=== PATIENT | male | born 1935 | race Hispanic/Latino ===

== ENCOUNTER 2016-05-04 07:49 | Day surgery (SDC) | payer MEDICARE ==
[2016-04-17 14:13] VITALS: PULSE 122
[2016-04-27 12:16] VITALS: BMI 27.3
[2016-05-04] MEDS ORDERED: Aztreonam 1 Gm in NS 100mL 100 ML IVPB STA (10:10)
[2016-05-04] MEDS ORDERED: Midazolam 2 MG/2 ML VIAL ONE (10:29)
[2016-05-04] MEDS ORDERED: Propofol 10 mg/ml Inj (20 ML) ONE (10:29)
[2016-05-04] MEDS ORDERED: Lactated Ringer's 1,000 ML IV SCH (11:15)
[2016-05-04 12:03] VITALS: BP 135/62; PULSE 73; RESP 18; TEMP 97.9; O2SAT 93
--- NOTE | 2016-05-04 12:49 | OP ---
PROCEDURE DATE: 05/04/2016 PREOPERATIVE DIAGNOSIS: Urethral stricture. POSTOPERATIVE DIAGNOSIS: Very high bladder neck. PROCEDURE: Removal of Chadwick catheter, flexible cystoscopy. SURGEON: Jair Ramirez M.D. ANESTHESIA: IV sedation. DESCRIPTION OF OPERATION: After IV sedation was given, the patient was placed in lithotomy. The cat heter had a sensor wire placed through the capsule Chadwick catheter and the catheter was removed. A fl exible scope was advanced over the sensor wire. The prostatic urethra had some bilobar occlusion, th ere was a very high bladder neck. The bladder itself on inspection did not show any obvious tumor or stones. There was some catheter reaction. What was noted was the patient was voiding around the s cope with an excellent stream. Prior to the start of the operation, he was given 1 gram of Azactam b ecause of a PENICILLIN ALLERGIES. The patient had the sensor wire left in the bladder. The scope wa s removed. There was no evidence of any bleeding. Over the sensor wire, a 16 [place] [employer] was pa ssed into the bladder with return of clear irrigant urine. He tolerated the procedure well. The kyrie n is to discontinue the Chadwick back at his half-way in 3 days, 7 a.m. on Saturday morning. The nurs es will call later to let me know how his voiding; however, he had an excellent stream, voiding aroun d the catheter and sensor wire. Jair Ramirez MD cc: [id number] TT: 05/04/2016 12:48:51 jn
== END 2016-05-04 13:55 ==
LOC: SDS 07:49
PROVIDERS: ATTEND Urology
DX: N32.89 Other specified disorders of bladder (principal); I10 Essential (primary) hypertension; Z88.0 Allergy status to penicillin; N35.9 Urethral stricture, unspecified
CPT/HCPCS: 52000; J2250; J2704; J3010; J7120 ×2

== ENCOUNTER 2017-08-13 13:02 | Inpatient (IN) | payer MEDICARE ==
[2017-08-13 13:24] VITALS: BMI 28.0
[2017-08-13] MEDS ORDERED: Iohexol 240 (50 ml) ONE (13:34)
[2017-08-13 14:17] LABS: VENOUS BLOOD GAS BASE EXCESS 1.2 mmol/L (0.0-2.0); VENOUS BLOOD GAS PO2 53 mm/Hg (30-55); VENOUS BLOOD PH 7.35 (7.32-7.43)
--- NOTE | 2017-08-13 14:18 | ED PDOC ---
Arrival/HPI - General Historian: Patient - History of Present Illness Symptom Onset: Gradual Symptom Course: Worsening - General Chief Complaint: Cough, Cold, Congestion Time Seen by Provider: 08/13/17 13:05 - History of Present Illness Narrative History of Present Illness (Text): 82 year old Male with a PMH of diabetes, hypertension, atrial fibrillation, depression, Non-Hodgkin's lymphoma, and BPH presents with painful urination, abdominal mass due to his Non-Hodgkin's lymphoma, and worsening cough. He has not been getting treatment for his Non-Hodgkin's lymphoma diagnosed last year. He reports that he has had worsening of burning on urination since Fall 2016. In addition, he reports right flank burning pain that is about 8 inches long down the right side that has been going on for a while. Patient reports no general pain from the area of the abdominal growth. Patient reports an on and off cough that has been going on for about a year. He reports having been given a medication called "millitit" while he was in [place], but was discontinued when he returned to his senior care. His cough has now worsened and has a green colored sputum. He denies having any recent headache or fever. 08/13/17 14:11 08/13/17 14:48 08/13/17 16:33 (Eriberto Rivers) Past Medical History - Provider Review Nursing Documentation Reviewed: Yes - Infectious Disease Hx of Infectious Diseases: None - Tetanus Immunization Tetanus Immunization: Unknown - Cardiac Hx Atrial Fibrillation: Yes Hx Hypertension: Yes Hx Pacemaker: No - Pulmonary Hx Pneumonia: Yes - Neurological Hx Alzheimer's Disease: Yes Hx Dementia: Yes Hx Paralysis: No - HEENT Hx HEENT Disorder: Yes (glasses) - Renal Hx Renal Disorder: No - Endocrine/Metabolic Hx Endocrine Disorders: Yes Hx Diabetes Mellitus Type 2: Yes - Hematological/Oncological Hx Blood Transfusions: No Hx Cancer: Yes Hx Lymphoma: Yes (Hodgkin's) - Integumentary Hx Dermatological Disorder: Yes Other/Comment: ble dry discolored skin - Musculoskeletal/Rheumatological Hx Musculoskeletal Disorders: No - Gastrointestinal Hx Gastrointestinal Disorders: Yes (constipation) Hx Gastroesophageal Reflux: Yes - Genitourinary/Gynecological Hx Genitourinary Disorders: Yes Hx Incontinence: Yes Hx Prostate Problems: Yes (BPH) Hx Urinary Tract Infection: Yes - Psychiatric Hx Depression: Yes Hx Emotional Abuse: No Hx Physical Abuse: No Hx Substance Use: No - Past Surgical History Past Surgical History: Non-Contributing - Surgical History Other/Comment: cystoscopy, pac rcw, left peritoneal lymphnode bx 04/2015, left thoracentesis 04/28/15, cystoscope today 04/17/16 dx burning in urine , bladder neck stricture - Anesthesia Hx Anesthesia Reactions: No Hx Malignant Hyperthermia: No - Suicidal Assessment Feels Threatened In Home Enviroment: No Family/Social History - Physician Review Nursing Documentation Reviewed: Yes Family/Social History: Unknown Family HX Smoking Status: Never Smoked Hx Alcohol Use: No Hx Substance Use: No Allergies/Home Meds Allergies/Adverse Reactions: Allergies Penicillins Adverse Reaction (Verified 08/13/17 13:16) RASH Home Medications: Home Meds Medication Instructions Recorded Confirmed Iron/Folic Acid/C/B6/B12/Zinc 1 tab PO DAILY 04/26/15 05/04/16 [Corvita 150 Tablet] Digoxin 0.125 mg PO QPM 05/12/15 05/04/16 DULoxetine [Cymbalta] 60 mg PO HS 04/10/16 05/04/16 Phenazopyridine [Pyridium] 200 mg PO TID 04/10/16 05/04/16 Tamsulosin [Flomax] 0.4 mg PO DAILY 04/10/16 05/04/16 Nitrofurantoin Macrocrystals 100 mg PO BID 05/04/16 05/04/16 [Macrobid] Acetaminophen [Non-Aspirin Pain 2 tab PO BID 08/13/17 08/13/17 Relief] Metformin HCl [Fortamet] 1,000 mg PO BID 08/13/17 08/13/17 Polyethylene Glycol 3350 [Peg 3350] 17 gm PO 08/13/17 QUEtiapine [SEROquel] 25 mg PO 08/13/17 Review of Systems - Review of Systems Constitutional: Normal Eyes: Normal ENT: Normal Respiratory: Cough, Sputum Cardiovascular: Normal Gastrointestinal: Abdominal Pain Genitourinary Male: Dysuria Musculoskeletal: Normal Skin: Normal Physical Exam Vital Signs Reviewed: Yes Blood Pressure: Hypertensive Pulse: Tachycardic Respiratory Rate: Normal Appearance: Positive for: Well-Appearing Mental Status: Positive for: Alert and Oriented X 3, Confused - Systems Exam Head: Present: Atraumatic Pupils: Present: PERRL Extroacular Muscles: Present: EOMI Conjunctiva: Present: Normal Mouth: Present: Moist Mucous Membranes Nose (External): Present: Atraumatic Neck: Present: Normal Range of Motion Respiratory/Chest: Present: Clear to Auscultation, Decreased Breath Sounds Cardiovascular: Present: Regular Rate and Rhythm Abdomen: Present: Tenderness, Distention, Mass/Organomegaly Upper Extremity: Present: Normal Inspection, NORMAL PULSES Lower Extremity: Present: Normal Inspection, NORMAL PULSES Neurological: Present: GCS=15, CN II-XII Intact, Speech Normal Skin: Present: Warm, Dry, Normal Color Psychiatric: Present: Alert, Oriented x 3, Normal Insight, Normal Concentration Vital Signs Temp Pulse Resp BP Pulse Ox 08/13/17 17:39 98.7 F 88 18 135/69 97 08/13/17 15:15 99.2 F 94 H 18 98 08/13/17 13:26 106 H 18 141/75 96 Medical Decision Making ED Course and Treatment: 82 year male presents with cough, burning on urination, and abdominal mass. Assessment: Pneumonia, UTI, Hodgkin's lymphoma Plan: CBC, CMP, Magnesium Chest X Ray Abdominal CT Urinanalysis, Urine Culture Blood Culture Venous Blood Gas 08/13/17 14:58 08/13/17 15:00 08/13/17 18:47 Lactate: 2.2-->1.3 Glucose 228-->121 CT shows possible left upper lobe tumor, inflammatory changes, and postobstructive pneumonitis. In addition, possible cystitis. Patient has been admitted to medicine. 08/13/17 18:48 08/13/17 18:52 08/13/17 18:53 (Eriberto Rivers) - Lab Interpretations Lab Results: 08/13/17 14:00 08/13/17 14:00 Lab Results 08/13/17 17:54: pO2 42, VBG pH 7.32, VBG pCO2 54.0, VBG HCO3 27.8, VBG Total CO2 29.5 H, VBG O2 Sat (Calc) 77.6 H, VBG Base Excess 0.7, VBG Potassium 4.7, Sodium 134.0, Chloride 103.0, Glucose 121 H, Lactate 1.3, FiO2 21.0, Venous Blood Potassium 4.7 08/13/17 14:00: Sodium 139, Chloride 102, Potassium 4.7, Carbon Dioxide 25, Anion Gap 16, BUN 22 H, Creatinine 0.7 L, Est GFR ( Amer) > 60, Est GFR ( Non-Af Amer) > 60, Random Glucose 223 H, Calcium 9.7, Magnesium 2.0, Total Bilirubin 0.3, AST 20, ALT 13, Alkaline Phosphatase 98, Lactate Dehydrogenase 309 L, Total Creatine Kinase < 20 L, Troponin I < 0.01 D, Total Protein 7.5, Albumin 4.0, Globulin 3.5, Albumin/Globulin Ratio 1.1, Lipase 91 08/13/17 14:00: pO2 53, VBG pH 7.35, VBG pCO2 50.0, VBG HCO3 27.6, VBG Total CO2 29.1 H, VBG O2 Sat (Calc) 89.2 H, VBG Base Excess 1.2, VBG Potassium 4.7, Sodium 138.0, Chloride 106.0, Glucose 228 H, Lactate 2.2 H, FiO2 21.0, Venous Blood Potassium 4.7 08/13/17 14:00: WBC 5.0 D, RBC 3.86, Hgb 10.0 L, Hct 33.6 L, MCV 87.0, MCH 25.9 , MCHC 29.8 L, RDW 22.4 H, Plt Count 205, MPV 10.5, Gran % 62.7, Lymph % (Auto) 25.7, [place] % (Auto) 6.0, Eos % (Auto) 4.8, Baso % (Auto) 0.8, Gran # 3.12, Lymph # (Auto) 1.3, [place] # (Auto) 0.3, Eos # (Auto) 0.2, Baso # (Auto) 0.04 - RAD Interpretation Narrative RAD Interpretations (Text): Lisa CT: 1. Suspicious findings primarily in the left upper lobe for tumor. 2. Likely inflammatory changes affecting segments of the right upper and right lower lobes. 3. Mucous plugging and postobstructive pneumonitis limited to the left mainstem bronchus and segmental branches. 4. Cholelithiasis without CT evidence of acute cholecystitis. A stable finding. 5. Nephrolithiasis, nonobstructing a stable finding. 6. Slight decrease in retroperitoneal lymphadenopathy. 7. Bladder wall thickening likely cystitis. Several remaining bladder calculi. Small bladder diverticulum. Chest X ray: Interval right rounded perihilar opacity- given the limitations- a patchy interval infiltrate here needs to be considered. Follow-up to resolution recommended. 08/13/17 18:50 08/13/17 18:51 (Eriberto Rivers) Radiology Orders: 08/13/17 13:25 CHEST,ABD,PEL W/IV&PO CONTRAST [CT] Stat 08/13/17 13:27 CHEST ONE VIEW [RAD] Stat - EKG Interpretation EKG Interpretation (Text): Sinus tachycardia. 08/13/17 18:51 (Eriberto Rivers) - Medication Orders Current Medication Orders: Acetaminophen (Tylenol 325mg Tab) 650 mg PO BID [facility] Last Admin: 08/13/17 20:11 Dose: 650 mg MAR Pain/Vitals Document 08/13/17 20:11 RD (Rec: 08/13/17 20:12 [place] [facility] [place] [facility] [id number] Pain Reassessment Is This A Pain ReAssessment? No Sleep Is patient sleeping during reassessment? No Presence of Pain Presence of Pain Yes Aspirin (Ecotrin) 81 mg PO DAILY [facility] Last Admin: 08/13/17 20:11 Dose: 81 mg Digoxin (Digoxin) 0.125 mg PO QPM [facility] Last Admin: 08/13/17 20:11 Dose: 0.125 mg MAR Apical Pulse Rate Document 08/13/17 20:11 RD (Rec: 08/13/17 20:11 [place] [facility] [place] [facility] [id number] Apical Pulse Rate Apical Pulse Rate (60-90 beats/min) 105 Guaifenesin/Codeine Phosphate (Robitussin W/Codeine) 5 ml PO Q4H PRN PRN Reason: Cough and congestion Sodium Chloride (Sodium Chloride 0.9%) 1,000 mls @ 125 mls/hr IV .Q8H [facility] Last Admin: 08/13/17 15:08 Dose: 125 mls/hr eMAR Start Stop Document 08/13/17 15:08 [email or web address] (Rec: 08/13/17 15:09 [email or web address] [id number]) Intravenous Solution Start Date 08/13/17 Start Time 15:09 End Date 08/13/17 Meropenem (Merrem Iv 1 Gm Premix) 50 mls @ 100 mls/hr IVPB Q8 AYLIN PRN Reason: Protocol Stop: 08/23/17 06:01 Last Admin: 08/14/17 05:33 Dose: 100 mls/hr eMAR Start Stop Document 08/14/17 05:33 PCU (Rec: 08/14/17 05:33 PCU [id number]) Intravenous Solution Start Date 08/14/17 Start Time 05:33 End Date 08/14/17 End time 06:33 Total Infusion Time 60 Metformin HCl (Glucophage) 1,000 mg PO BID [facility] Last Admin: 08/13/17 22:28 Dose: 1,000 mg Phenazopyridine HCl (Pyridium) 200 mg PO TID [facility] Last Admin: 08/13/17 20:11 Dose: 200 mg Quetiapine Fumarate (Seroquel) 25 mg PO HS AYLIN PRN Reason: Protocol Last Admin: 08/13/17 22:28 Dose: 25 mg Behavioural Document 08/13/17 22:28 PCU (Rec: 08/13/17 22:28 PCU [id number]) Maintenance Maintenance Dose Yes Re-Assess: Reassess Psych Meds Document 08/13/17 23:28 PCU (Rec: 08/13/17 23:52 PCU [facility]) Reassess Psych Med Effective Tamsulosin HCl (Flomax) 0.4 mg PO DAILY [facility] Last Admin: 08/13/17 20:11 Dose: 0.4 mg Discontinued Medications Levofloxacin/Dextrose (Levaquin 750mg) 750 mg in 150 mls @ 100 mls/hr IVPB STAT STA PRN Reason: Protocol Stop: 08/13/17 16:45 Last Admin: 08/13/17 17:43 Dose: 100 mls/hr eMAR Start Stop Document 08/13/17 17:43 [email or web address] (Rec: 08/13/17 17:44 [email or web address] [id number]) Intravenous Solution Start Date 08/13/17 Start Time 17:44 End Date 08/13/17 - PA / SKIN TOGGLER / Resident Statement / has reviewed & agrees with the documentation as recorded. / has examined the patient and agrees with the treatment plan. Disposition/Present on Arrival - Present on Arrival Any Indicators Present on Arrival: No History of DVT/PE: No History of Uncontrolled Diabetes: No Urinary Catheter: Yes (draining clear bloody urine) History of Decub. Ulcer: No History Surgical Site Infection Following: None - Disposition Have Diagnosis and Disposition been Completed?: Yes Disposition Time: 16:04 Patient Plan: Admission - Disposition Diagnosis: Metastasis, Pneumonia Disposition: HOSPITALIZED Patient Problems: Current Active Problems Problem Status Onset Metastasis Acute Condition: STABLE - Notes Notes (Text): Patient was code sepsis and did not receive IV fluids because lactate level decreased without any intervention. 08/13/17 18:42 (Eriberto Rivers)
[2017-08-13 14:27] LABS: ALB/GLOB RATIO 1.1 (1.1-1.8); ALT/SGPT 13 U/L (7-56); AST/SGOT 20 U/L (17-59); BLOOD UREA NITROGEN 22 mg/dL (7-21); CALCIUM 9.7 mg/dL (8.4-10.5); GFR AFRICAN-AMERICAN > 60; GFR NON-AFRICAN AMERICAN > 60; LIPASE 91 U/L (23-300)
[2017-08-13 14:31] LABS: BASO # 0.04 K/mm3 (0.0-2.0); BASO % 0.8 % (0.0-3.0); EOS # 0.2 (0.0-0.7); EOS % 4.8 % (1.5-5.0); GRAN # 3.12 (1.4-6.5); GRAN % 62.7 % (50.0-68.0); LYMPH # 1.3 (1.2-3.4); LYMPH % 25.7 % (22.0-35.0); MEAN CORPUSCULAR HEMOGLOBIN 25.9 pg (25.0-35.0); MEAN CORPUSCULAR HGB CONC 29.8 g/dl (31.0-37.0); MEAN PLATELET VOLUME 10.5 fl (7.0-11.0); MONO # 0.3 (0.1-0.6); RBC 3.86 10^6/uL (3.5-6.1); RED CELL DISTRIBUTION WIDTH 22.4 % (11.5-14.5)
[2017-08-13 14:39] LABS: TROPONIN I < 0.01 ng/mL
[2017-08-13] MEDS: Sodium Chloride 0.9% 1,000 ML IV SCH (15:08)
[2017-08-13] MEDS ORDERED: levoFLOXacin 750 mg in D5W 750 MG/150 ML BAG IVPB STA (15:16)
--- NOTE | 2017-08-13 16:57 | RAD ---
PROCEDURE: CHEST RADIOGRAPH, 1 VIEW HISTORY: r/o infiltrate COMPARISON: 04/17/2016 FINDINGS: LUNGS: Study limited - projection rightwardly rotated. Vague rounded opacity projects over the right perihilar region. Not appreciated such on the prior study or rounded infiltrate is a consideration. No interval left hemithoracic pathology noted PLEURA: No pneumothorax or pleural fluid seen. CARDIOVASCULAR: Valuation of the heart limited due to rotation. Right central line tip in right atrium as before OSSEOUS STRUCTURES: No significant abnormalities. VISUALIZED UPPER ABDOMEN: Normal. OTHER FINDINGS: None. IMPRESSION: Interval right rounded perihilar opacity- given the limitations- a patchy interval infiltrate here needs to be considered. Follow-up to resolution recommended.
--- NOTE | 2017-08-13 17:47 | CT ---
PROCEDURE: CT Chest, Abdomen and Pelvis with intravenous contrast HISTORY: Evaluation of pelvic mass. Relevant interventional procedure(s): 05/02/2015 CT directed biopsy enlarged retroperitoneal lymph node. COMPARISON: 09/13/2015 CT neck thorax abdomen and pelvis TECHNIQUE: IV dose administered: 150 cc Omnipaque 350 Radiation dose: Total exam DLP = 1703.64 mGy-cm. This CT exam was performed using one or more of the following dose reduction techniques: Automated exposure control, adjustment of the mA and/or kV according to patient size, and/or use of iterative reconstruction technique. FINDINGS: CT CHEST WITH CONTRAST: LUNGS: New masses in the left upper lobe measuring 12 x 13 mm and a more peripheral pleural-based mass posterior segment left upper lobe measuring 13 x 14 mm. Peripheral infiltrates/ masses affecting posterior segment of the right upper lobe and superior segment right lower lobe. These were not seen on the prior study. Within the right lower lobe bronchus there is debris, inspissated secretions. Peripheral parabronchial thickening and lower lobe consolidative changes perhaps postobstructive pneumonitis with mucous plugging. MEDIASTINUM: Unremarkable. Normal caliber aorta and pulmonary arterial trunk. No aortic dissection. Normal size heart. LYMPH NODES: Unremarkable. PLEURA: Simple left pleural effusion appears to be a chronic finding, seen previously. BONES: Unremarkable. OTHER FINDINGS: None. CT ABDOMEN AND PELVIS: LIVER: Hepatic steatosis. No focal masses. No intrahepatic bile duct dilatation or perihepatic ascites. GALLBLADDER AND BILE DUCTS: Cholelithiasis without CT evidence of acute cholecystitis. PANCREAS: Unremarkable. No gross lesion or ductal dilatation. SPLEEN: Small peripheral cysts or areas of splenic infarction identified. This is not felt to represent a neoplastic process/ tumor burden. ADRENALS: Unremarkable. No mass. KIDNEYS AND URETERS: Right kidney: Nonobstructing calculi in the upper pole collecting system unchanged. Left kidney in ureter: Double-J stent in satisfactory position in the renal pelvis coursing through the ureter, the catheter is coiled in the urinary bladder. VASCULATURE: Unremarkable. No aortic aneurysm. BOWEL: Unremarkable. No obstruction. No gross mural thickening. APPENDIX: Normal appendix. PERITONEUM: Unremarkable. No free fluid. No free air. LYMPH NODES: Decrease in size left periaortic lymphadenopathy. Multiple enlarged lymph nodes again identified the largest confluent tucker mass measures 2.1 x 3 cm. Previously this measured 2.6 x 3.4 cm. BLADDER: Bladder wall thickening likely reflective of mild cystitis. Bladder calculi are fewer and smaller compared to the prior study. REPRODUCTIVE: Unremarkable. BONES: No acute fracture. OTHER FINDINGS: None. IMPRESSION: 1. Suspicious findings primarily in the left upper lobe for tumor. 2. Likely inflammatory changes affecting segments of the right upper and right lower lobes. 3. Mucous plugging and postobstructive pneumonitis limited to the left mainstem bronchus and segmental branches. 4. Cholelithiasis without CT evidence of acute cholecystitis. A stable finding. 5. Nephrolithiasis, nonobstructing a stable finding. 6. Slight decrease in retroperitoneal lymphadenopathy. 7. Bladder wall thickening likely cystitis. Several remaining bladder calculi. Small bladder diverticulum.
[2017-08-13] MEDS ORDERED: guaiFENesin-Codeine 100-10mg/5ml Syrup (5 ml) UD PO PRN (18:03)
[2017-08-13 18:07] LABS: VENOUS BLOOD GAS BASE EXCESS 0.7 mmol/L (0.0-2.0); VENOUS BLOOD GAS PO2 42 mm/Hg (30-55); VENOUS BLOOD PH 7.32 (7.32-7.43)
[2017-08-13] MEDS ORDERED: guaiFENesin-Codeine 100-10mg/5ml Syrup (5 ml) UD PO SCH (20:00)
[2017-08-13] MEDS: Digoxin 125 mcg (0.125 mg) Tab PO SCH (20:11)
[2017-08-13 20:25] LABS: URINE BILIRUBIN NEGATIVE (NEGATIVE); URINE BLOOD MODERATE (NEGATIVE); URINE GLUCOSE (UA) NEGATIVE (NEGATIVE); URINE LEUKOCYTE ESTERASE MODERATE Leu/uL (NEGATIVE); URINE PROTEIN TRACE mg/dL (<30 mg/dL); URINE UROBILINOGEN 0.2 E.U./dL (<1 E.U./dL)
[2017-08-13 20:44] LABS: URINE APPEARANCE SL CLOUDY (CLEAR); URINE COLOR YELLOW (YELLOW)
[2017-08-13 20:46] LABS: URINE AMORPHOUS SEDIMENT MODERATE; URINE BACTERIA TRACE (NEG); URINE EPITHELIAL CELLS MANY /hpf (0-5); URINE RBC 20 - 25 /hpf (0-2)
[2017-08-14] MEDS: Meropenem IV 1 gm in NS 50 ML IVPB SCH ×3 (05:33→21:04)
--- NOTE | 2017-08-14 07:49 | CARD ---
APPROVED REPORT EKG Measurement Heart [id number] <Conclusion> Sinus tachycardia Otherwise normal ECG
--- NOTE | 2017-08-14 09:29 | CP.PCM.HP ---
<Blayne Arevalo - Last Filed: 08/14/17 10:48> History of Present Illness - History of Present Illness History of Present Illness: Medicine note for Dr. Kathleen Arevalo PGY3 HPI: Patient is a 82yo male with past medical history of dementia, depression, atrial fibrillation, GERD, thrombocytopenia that presented to [facility] with c/o atrial fibrillation, depression, lymphoma and BPH that presented with multiple complaints including dysuria, progressing/worsening cough and abdominal mass secondary to his lymphoma. He reported that both his dysuria and cough have been progressing over the past several months. He states that his cough has been producing green sputum. He also reported that his abdominal mass has been causing discomfort however he has admittedly not followed up with oncology for treatment of his lymphoma. Presently denies chest pain, palpitations, SOB, nausea, vomiting, fever, chills. 12point ROS as per HPI above otherwise negative PMH: as stated above PSH: history of urology J-stent placement Allergies: Penicillin Family Hx: no family history of malignancy reported Social Hx: Resident of [facility] Present on Admission - Present on Admission Any Indicators Present on Admission: No Past Patient History - Infectious Disease Hx of Infectious Diseases: None - Tetanus Immunizations Tetanus Immunization: Unknown - Past Social History Smoking Status: Former Smoker - CARDIAC Hx Atrial Fibrillation: Yes Hx Hypertension: Yes Hx Pacemaker: No - PULMONARY Hx Pneumonia: Yes - NEUROLOGICAL Hx Alzheimer's Disease: Yes Hx Dementia: Yes Hx Paralysis: No - HEENT Hx HEENT Problems: Yes (glasses) - RENAL Hx Chronic Kidney Disease: No - ENDOCRINE/METABOLIC Hx Endocrine Disorders: Yes Hx Diabetes Mellitus Type 2: Yes - HEMATOLOGICAL/ONCOLOGICAL Hx Blood Transfusions: No Hx Cancer: Yes - INTEGUMENTARY Hx Dermatological Problems: Yes Other/Comment: ble dry discolored skin - MUSCULOSKELETAL/RHEUMATOLOGICAL Hx Falls: No - GASTROINTESTINAL Hx Gastrointestinal Disorders: Yes (constipation) Hx Gastroesophageal Reflux: Yes - GENITOURINARY/GYNECOLOGICAL Hx Genitourinary Disorders: Yes Hx Incontinence: Yes Hx Prostate Problems: Yes (BPH) Hx Urinary Tract Infection: Yes - PSYCHIATRIC Hx Substance Use: No - SURGICAL HISTORY Other/Comment: cystoscopy, pac rcw, left peritoneal lymphnode bx 04/2015, left thoracentesis 04/28/15, cystoscope today 04/17/16 dx burning in urine , bladder neck stricture - ANESTHESIA Hx Anesthesia Reactions: No Hx Malignant Hyperthermia: No Meds Allergies/Adverse Reactions: Allergies Allergy/AdvReac Type Severity Reaction Status Date / Time Penicillins AdvReac RASH Verified 08/13/17 13:16 Physical Exam - Constitutional Appears: No Acute Distress, Confused - Head Exam Head Exam: ATRAUMATIC, NORMAL INSPECTION, NORMOCEPHALIC - Eye Exam Eye Exam: EOMI Pupil Exam: PERRL - ENT Exam ENT Exam: Mucous Membranes Moist - Respiratory Exam Respiratory Exam: Decreased Breath Sounds. absent: Rales, Rhonchi, Wheezes - Cardiovascular Exam Cardiovascular Exam: +S1, +S2. absent: Gallop, Rubs - GI/Abdominal Exam GI & Abdominal Exam: Mass, Soft. absent: Distended, Firm, Guarding, Rebound, Rigid, Tenderness Additional comments: large right-sided abdominal mass umbilical hernia soft, non-tender non-distended - Extremities Exam Extremities exam: Positive for: normal inspection. Negative for: pedal edema - Neurological Exam Neurological exam: Alert, Oriented x3 - Psychiatric Exam Psychiatric exam: Normal Affect, Normal Mood - Skin Skin Exam: Dry, Intact, Normal Color, Warm Results - Vital Signs Recent Vital Signs: Last Vital Signs Temp 98.4 F 08/14/17 06:00 Pulse 86 08/14/17 06:00 Resp 20 08/14/17 06:00 BP 131/65 08/14/17 06:00 Pulse Ox 96 08/14/17 06:00 - Labs Result Diagrams: 08/13/17 14:00 08/13/17 14:00 Labs: Laboratory Results - last 24 hr 08/13/17 08/13/17 08/14/17 20:14 22:27 06:33 POC Glucose (mg/dL) 210 H 155 H Urine Color Yellow Urine Appearance Sl cloudy Urine pH 6.0 Ur Specific [place] <= 1.005 Urine Protein Trace H Urine Glucose (UA) Negative Urine Ketones Negative Urine Blood Moderate H Urine Nitrate Positive H Urine Bilirubin Negative Urine Urobilinogen 0.2 Ur Leukocyte Esterase Moderate H Urine RBC 20 - 25 Urine WBC 5 - 10 Ur Epithelial Cells Many Amorphous Sediment Moderate Urine Bacteria Trace Assessment & Plan - Assessment and Plan (Free Text) Plan: 82yo male with history of lymphoma, atrial fibrillation, depression that presents with c/o productive cough, dysuria and abdominal mass 1. Healthcare associated pneumonia 2. UTI 3. Hx of lymphoma 4. Hx of depression 5. Hx of atrial fibrillation -CT and CXR reviewed; revealed IGNACIO mass, inflammatory changes, postobstructive pneumonitis and possible infiltrates in right lobe as well as bladder wall thickening suspicious for cystitis; see full reports -Patient has been afebrile with no leukocytosis; Blood and urine cultures have been ordered as well as procalcitonin -He is on meropenem per ID recommendations (Dr. Eason) for treatment of pneumonia/UTI -He is on flomax for BPH, seroquel for depression and digoxin for his history of atrial fibrillation -Consistent carb diet -Oncology consulted for evaluation/treatment of his lymphoma Patient seen and case discussed/reviewed with attending, Dr. Wang <Melvin Wang S - Last Filed: 08/14/17 11:54> Results - Vital Signs Recent Vital Signs: Last Vital Signs Temp 98.4 F 08/14/17 06:00 Pulse 86 08/14/17 06:00 Resp 20 08/14/17 06:00 BP 131/65 08/14/17 06:00 Pulse Ox 96 08/14/17 06:00 - Labs Result Diagrams: 08/13/17 14:00 08/13/17 14:00 Labs: Laboratory Results - last 24 hr 08/13/17 08/13/17 08/14/17 20:14 22:27 06:33 POC Glucose (mg/dL) 210 H 155 H Urine Color Yellow Urine Appearance Sl cloudy Urine pH 6.0 Ur Specific [place] <= 1.005 Urine Protein Trace H Urine Glucose (UA) Negative Urine Ketones Negative Urine Blood Moderate H Urine Nitrate Positive H Urine Bilirubin Negative Urine Urobilinogen 0.2 Ur Leukocyte Esterase Moderate H Urine RBC 20 - 25 Urine WBC 5 - 10 Ur Epithelial Cells Many Amorphous Sediment Moderate Urine Bacteria Trace 08/14/17 11:20 POC Glucose (mg/dL) 206 H Urine Color Urine Appearance Urine pH Ur Specific [place] Urine Protein Urine Glucose (UA) Urine Ketones Urine Blood Urine Nitrate Urine Bilirubin Urine Urobilinogen Ur Leukocyte Esterase Urine RBC Urine WBC Ur Epithelial Cells Amorphous Sediment Urine Bacteria Assessment & Plan - Assessment and Plan (Free Text) Plan: Pt seen and examined by me. The labs and medications have been reviewed. I reviewed the note of the medical lab director and I agree with it. Pt went to see Dr Tomlin (oncology) for her f/u. He was lost to f/u and did not go to see her for her lymphoma. I had advised him multiple times. Will get IV Abx. Wait for culture results.
[2017-08-14] MEDS: guaiFENesin-Codeine 100-10mg/5ml Syrup (5 ml) UD PO SCH ×2 (10:23→17:40)
[2017-08-14] MEDS: Sodium Chloride 0.9% 1,000 ML IV SCH (10:24)
[2017-08-14 12:17] LABS: BASO # 0.04 K/mm3 (0.0-2.0); BASO % 0.9 % (0.0-3.0); EOS # 0.2 (0.0-0.7); GRAN # 2.86 (1.4-6.5); GRAN % 67.7 % (50.0-68.0); HEMOGLOBIN 9.2 g/dL (14.0-18.0); LYMPH # 0.8 (1.2-3.4); LYMPH % 19.6 % (22.0-35.0); MEAN CELL VOLUME 86.3 fl (80.0-105.0); MEAN CORPUSCULAR HEMOGLOBIN 26.3 pg (25.0-35.0); MEAN CORPUSCULAR HGB CONC 30.5 g/dl (31.0-37.0); MEAN PLATELET VOLUME 10.5 fl (7.0-11.0); MONO # 0.3 (0.1-0.6); MONO % 7.8 % (1.0-6.0); RBC 3.5 10^6/uL (3.5-6.1); RED CELL DISTRIBUTION WIDTH 22.3 % (11.5-14.5); WHITE BLOOD COUNT 4.2 10^3/ul (4.5-11.0)
[2017-08-14] MEDS: Vancomycin 1gm in NS 250ml 1 GM/250 ML BAG IVPB SCH ×2 (12:22→23:02)
[2017-08-14 12:24] LABS: ALB/GLOB RATIO 1.1 (1.1-1.8); ALBUMIN 3.4 g/dL (3.0-4.8); ALT/SGPT 8 U/L (7-56); AST/SGOT 22 U/L (17-59); BLOOD UREA NITROGEN 15 mg/dL (7-21); CALCIUM 9.1 mg/dL (8.4-10.5); GFR AFRICAN-AMERICAN > 60; GFR NON-AFRICAN AMERICAN > 60
[2017-08-14] MEDS: Insulin Reg-LOW-Coverage SC SCH ×2 (17:35→21:48)
[2017-08-14] MEDS: Digoxin 125 mcg (0.125 mg) Tab PO SCH (17:41)
--- NOTE | 2017-08-14 20:33 | CON ---
DATE: 08/14/2017 LOCATION: The patient is in bed in room 562, bed 1. CHIEF COMPLAINT: Cough and shortness of breath times several days. HISTORY OF PRESENT ILLNESS: This is an 82-year-old male, long-term patient with dementia and history of depression, GERD, thrombocytopenia, diabetes, Alzheimer's, atrial fibrillation with history of non-Hodgkin's lymphoma and BPH, who is admitted through the emergency room, seen by in the emergency room last night and the patient had been complaining of cough and cold and congestion and the patient with low-grade fevers. No abdominal pain and diarrhea or constipation. No chest pain. No headaches or blurred vision. REVIEW OF SYSTEMS: Twelve-point review of systems is performed. PAST MEDICAL HISTORY: Significant for dementia, depression, diabetes, Alzheimer's, GERD, thrombocytopenia, atrial fibrillation, non-Hodgkin's lymphoma, BPH. PAST SURGICAL HISTORY: Significant for the patient does have a right Port-A-Cath. ALLERGIES: THE PATIENT IS ALLERGIC TO PENICILLIN, TYPE OF ALLERGY IS NOT ENTIRELY CLEAR. MEDICATIONS: He comes from a long-term and medications at the long-term include metformin, Seroquel, digoxin, Cymbalta, aspirin. PHYSICAL EXAMINATION: GENERAL: He is in bed, no acute distress, communicating well. VITAL SIGNS: Temperature of 99.2; heart rate of 94, it was up to 106; respiratory rate of 18, it was up to 20; blood pressure is 111/60. The patient's oxygenation saturation is at 95% saturation at room air. HEENT: Examination of HEENT is unremarkable. NECK: Supple. LUNGS: Have decreased breath sounds. HEART: Normal S1, S2. ABDOMEN: Soft, nontender. No organomegaly. No rebound. No guarding. No masses. LABORATORY DATA: Laboratory examination reveals a white count of 5000, hemoglobin of 10, platelets of 205. The chemistries reveals a BUN of 22, creatinine of 0.7. LDH is 309. Urinalysis is reveals 5-10 wbc's, trace bacteria, many epithelial cells, moderate amorphous sediment, moderate leukocyte esterase and positive nitrites. Dr. Blayne Arevalo's note is reviewed. The patient had a chest x-ray. Interval right around perihilar opacity, patchy infiltrates and right line in the atrium is noted from a Port-A-Cath. Microbiology is pending. Microbiology, previous admissions from 2016 and 2017, negative urine cultures, negative pleural cultures and negative blood cultures. ASSESSMENT AND PLAN: An 82-year-old male, long-term patient, dementia, depression, gastroesophageal reflux disease, thrombocytopenia, diabetes, Alzheimer's, atrial fibrillation, lymphoma, benign prostatic hypertrophy, presenting with cough and congestion with healthcare-associated pneumonia, rule out gram-positive cocci versus gram-negative hailey pneumonia. Must also rule out bacteremia from the Port-A-Cath. Our plan is to check on the blood cultures, urine cultures and sputum cultures were, procalcitonin. We will start the patient on meropenem and vancomycin. Pending workup results and clinical response, procalcitonin and cultures, we will make further recommendations. Sarbjit Eason MD
--- NOTE | 2017-08-14 23:50 | CP.PCM.CON ---
History of Present Illness - History of Present Illness History of Present Illness: Mr. Rocha is an 82 year old diagnosed with low grade NHL 2 years ago. He had bulky abdominal lymphadenopathy. He was started on single agent Rituxan and received treatment for few months. His health care proxy declined further treatment. he was seen in office with complaints of abdominal pain, cough with purulent expectoration for past few weeks. he has multiple co-morbid conditions and is wheel chair bound. Loss of apatite. Complains of burning during urination for 1 week. Review of Systems - Constitutional Constitutional: Weight Loss, Weakness - EENT Eyes: absent: As Per HPI, Blind Spots, Blurred Vision, Change in Vision, Decreased Night Vision, Diplopia, Discharge, Dry Eye, Exophthalmos, Floaters, Irritation, Itchy Eyes, Loss of Peripheral Vision, Pain, Photophobia, Requires Corrective Lenses, Sees Flashes, Spots in Vision, Tunnel Vision, Other Visual Disturbances, Loss of Vision, Other Ears: absent: As Per HPI, Decreased Hearing, Ear Discharge, Ear Pain, Tinnitus, Abnormal Hearing, Disequilibrium, Dizziness, Other Nose/Mouth/Throat: absent: As Per HPI, Epistaxis, Nasal Congestion, Nasal Discharge, Nasal Obstruction, Nasal Trauma, Nose Pain, Post Nasal Drip, Sinus Pain, Sinus Pressure, Bleeding Gums, Change in Voice, Dental Pain, Dry Mouth, Dysphagia, Halitosis, Hoarsness, Lip Swelling, Mouth Lesions, Mouth Pain, Odynophagia, Sore Throat, Throat Swelling, Tongue Swelling, Facial Pain, Neck Pain, Neck Mass, Other - Cardiovascular Cardiovascular: absent: As Per HPI, Acrocyanosis, Chest Pain, Chest Pain at Rest , Chest Pain with Activity, Claudication, Diaphoresis, Dyspnea, Dyspnea on Exertion, Edema, Irregular Heart Rhythm, Pain Radiating to Arm/Neck/Jaw, Leg Edema, Leg Ulcers, Lightheadedness, Orthopnea, Palpitations, Paroxysmal Nocturnal Dyspnea, Pedal Edema, Radiating Pain, Rapid Heart Rate, Slow Heart Rate, Syncope, Other - Respiratory Respiratory: As Per HPI, Cough, Dyspnea, Excessive Mucous Production - Gastrointestinal Gastrointestinal: As Per HPI - Genitourinary Genitourinary: As Per HPI - Musculoskeletal Musculoskeletal: As Per HPI - Integumentary Integumentary: absent: As Per HPI, Acne, Alopecia, Bleeding Lesions, Change in Hair, Change in Nails, Change in Pigmentation, Changing Lesions, Dry Skin, Erythema, Furuncle, Hirsutism, Lesions, New Lesions, Non-Healing Lesions, Photosensitivity, Pruritus, Rash, Skin Pain, Skin Ulcer, Sores, Striae, Swelling , Unusual Bruising, Wounds, Jaundice, Other - Neurological Neurological: absent: As Per HPI, Abnormal Gait, Abnormal Hearing, Abnormal Movements, Abnormal Speech, Behavioral Changes, Burning Sensations, Confusion, Convulsions, Disequilibrium, Dizziness, Numbness, Focal Weakness, Frequent Falls , Headaches, Lack of Coordination, Loss of Vision, Memory Loss, Paresthesias, Radicular Pain, Restless Legs, Sensory Deficit, Syncope, Tingling, Tremor, Vertigo, Weakness, Other Visual Disturbances, Other - Endocrine Endocrine: absent: As Per HPI, Change in Body Appearance, Change in Libido, Cold Intolorance, Deepening of Voice, Excessive Sweating, Fatigue, Flushing, Heat Intolorance, Increase in Ring/Shoe/Hat Size, Palpitations, Polydipsia, Polyphagia, Polyuria, Other - Hematologic/Lymphatic Hematologic: As Per HPI Past Patient History - Infectious Disease Hx of Infectious Diseases: None - Tetanus Immunizations Tetanus Immunization: Unknown - Past Social History Smoking Status: Former Smoker - CARDIAC Hx Atrial Fibrillation: Yes Hx Hypertension: Yes Hx Pacemaker: No - PULMONARY Hx Pneumonia: Yes - NEUROLOGICAL Hx Alzheimer's Disease: Yes Hx Dementia: Yes Hx Paralysis: No - HEENT Hx HEENT Problems: Yes (glasses) - RENAL Hx Chronic Kidney Disease: No - ENDOCRINE/METABOLIC Hx Endocrine Disorders: Yes Hx Diabetes Mellitus Type 2: Yes - HEMATOLOGICAL/ONCOLOGICAL Hx Blood Transfusions: No Hx Cancer: Yes - INTEGUMENTARY Hx Dermatological Problems: Yes Other/Comment: ble dry discolored skin - MUSCULOSKELETAL/RHEUMATOLOGICAL Hx Falls: No - GASTROINTESTINAL Hx Gastrointestinal Disorders: Yes (constipation) Hx Gastroesophageal Reflux: Yes - GENITOURINARY/GYNECOLOGICAL Hx Genitourinary Disorders: Yes Hx Incontinence: Yes Hx Prostate Problems: Yes (BPH) Hx Urinary Tract Infection: Yes - PSYCHIATRIC Hx Substance Use: No - SURGICAL HISTORY Other/Comment: cystoscopy, pac rcw, left peritoneal lymphnode bx 04/2015, left thoracentesis 04/28/15, cystoscope today 04/17/16 dx burning in urine , bladder neck stricture - ANESTHESIA Hx Anesthesia Reactions: No Hx Malignant Hyperthermia: No Meds Allergies/Adverse Reactions: Allergies Allergy/AdvReac Type Severity Reaction Status Date / Time Penicillins AdvReac RASH Verified 08/13/17 13:16 - Medications Medications: Current Medications Acetaminophen (Tylenol 325mg Tab) 650 mg PO BID [facility] Last Admin: 08/14/17 17:40 Dose: 650 mg Aspirin (Ecotrin) 81 mg PO DAILY [facility] Last Admin: 08/14/17 10:23 Dose: 81 mg Digoxin (Digoxin) 0.125 mg PO QPM [facility] Last Admin: 08/14/17 17:41 Dose: 0.125 mg Guaifenesin/Codeine Phosphate (Robitussin W/Codeine) 5 ml PO BID [facility] Last Admin: 08/14/17 17:40 Dose: 5 ml Sodium Chloride (Sodium Chloride 0.9%) 1,000 mls @ 125 mls/hr IV .Q8H [facility] Last Admin: 08/14/17 10:24 Dose: 125 mls/hr Meropenem (Merrem Iv 1 Gm Premix) 50 mls @ 100 mls/hr IVPB Q8 [facility] PRN Reason: Protocol Stop: 08/23/17 06:01 Last Admin: 08/14/17 21:04 Dose: 100 mls/hr Vancomycin HCl (Vancomycin 1gm) 1 gm in 250 mls @ 167 mls/hr IVPB Q12H [facility] PRN Reason: Protocol Stop: 08/23/17 11:01 Last Admin: 08/14/17 23:02 Dose: 167 mls/hr Insulin Human Regular (Humulin R Low) 0 units SC ACHS [facility] PRN Reason: Protocol Last Admin: 08/14/17 21:48 Dose: Not Given Metformin HCl (Glucophage) 1,000 mg PO BID [facility] Last Admin: 08/14/17 17:40 Dose: 1,000 mg Phenazopyridine HCl (Pyridium) 200 mg PO TID [facility] Last Admin: 08/14/17 17:41 Dose: 200 mg Quetiapine Fumarate (Seroquel) 25 mg PO HS [facility] PRN Reason: Protocol Last Admin: 08/14/17 21:04 Dose: 25 mg Tamsulosin HCl (Flomax) 0.4 mg PO DAILY [facility] Last Admin: 08/14/17 10:23 Dose: 0.4 mg Physical Exam - Constitutional Appears: Chronically Ill - Head Exam Head Exam: ATRAUMATIC, NORMAL INSPECTION, NORMOCEPHALIC - Eye Exam Eye Exam: Normal appearance - ENT Exam ENT Exam: Mucous Membranes Moist, Normal Exam - Neck Exam Neck exam: Positive for: Normal Inspection - Respiratory Exam Respiratory Exam: Rales, NORMAL BREATHING PATTERN - Cardiovascular Exam Cardiovascular Exam: REGULAR RHYTHM, +S1, +S2 - GI/Abdominal Exam GI & Abdominal Exam: Mass, Normal Bowel Sounds, Soft - Extremities Exam Extremities exam: Positive for: pedal edema - Neurological Exam Neurological exam: Alert, Oriented x3 - Skin Skin Exam: Dry, Pallor, Warm Results - Vital Signs Recent Vital Signs: Last Vital Signs Temp 99.0 F 08/14/17 22:00 Pulse 104 H 08/14/17 22:00 Resp 16 08/14/17 22:00 BP 113/55 L 08/14/17 22:00 Pulse Ox 91 L 08/14/17 22:00 - Labs Result Diagrams: 08/14/17 12:00 08/14/17 12:00 Labs: Laboratory Results - last 24 hr 08/14/17 08/14/17 08/14/17 06:33 11:20 12:00 WBC 4.2 L RBC 3.50 Hgb 9.2 L Hct 30.2 L MCV 86.3 MCH 26.3 MCHC 30.5 L RDW 22.3 H Plt Count 187 MPV 10.5 Gran % 67.7 Lymph % (Auto) 19.6 L [place] % (Auto) 7.8 H Eos % (Auto) 4.0 Baso % (Auto) 0.9 Gran # 2.86 Lymph # (Auto) 0.8 L [place] # (Auto) 0.3 Eos # (Auto) 0.2 Baso # (Auto) 0.04 Sodium Potassium Chloride Carbon Dioxide Anion Gap BUN Creatinine Est GFR ( Amer) Est GFR (Non-Af Amer) POC Glucose (mg/dL) 155 H 206 H Random Glucose Calcium Total Bilirubin AST ALT Alkaline Phosphatase Total Protein Albumin Globulin Albumin/Globulin Ratio Procalcitonin 08/14/17 08/14/17 08/14/17 12:00 12:00 16:05 WBC RBC Hgb Hct MCV MCH MCHC RDW Plt Count MPV Gran % Lymph % (Auto) [place] % (Auto) Eos % (Auto) Baso % (Auto) Gran # Lymph # (Auto) [place] # (Auto) Eos # (Auto) Baso # (Auto) Sodium 139 Potassium 4.6 Chloride 104 Carbon Dioxide 27 Anion Gap 13 BUN 15 Creatinine 0.6 L Est GFR ( Amer) > 60 Est GFR (Non-Af Amer) > 60 POC Glucose (mg/dL) 177 H Random Glucose 196 H Calcium 9.1 Total Bilirubin 0.4 AST 22 ALT 8 Alkaline Phosphatase 82 Total Protein 6.6 Albumin 3.4 Globulin 3.2 Albumin/Globulin Ratio 1.1 Procalcitonin < 0.05 L 08/14/17 21:18 WBC RBC Hgb Hct MCV MCH MCHC RDW Plt Count MPV Gran % Lymph % (Auto) [place] % (Auto) Eos % (Auto) Baso % (Auto) Gran # Lymph # (Auto) [place] # (Auto) Eos # (Auto) Baso # (Auto) Sodium Potassium Chloride Carbon Dioxide Anion Gap BUN Creatinine Est GFR ( Amer) Est GFR (Non-Af Amer) POC Glucose (mg/dL) 248 H Random Glucose Calcium Total Bilirubin AST ALT Alkaline Phosphatase Total Protein Albumin Globulin Albumin/Globulin Ratio Procalcitonin Assessment & Plan - Assessment and Plan (Free Text) Assessment: 1. NHL , intrabdominal lymphadenopathy. CT abdomen showed slight decrease in size of lymph node. S/P few doses of single agent Rituxan in 2016. 2. Multiple mass like lesion in left lower lobe, right upper lobe. ? PNA, ? NHL , ? lung cancer . Received Levaquin in ER. ID consult ordered for PNA. I will discuss with brother/health care proxy if he wants work up for lung lesions. Repeat CT scan in 4-6 weeks will be a reasonable option for him. 3. Heme : blood counts stable. 4. Blood cultures, urine cultures pending. 5. renal : normal BUN, creatinine. Thank you Dr. Wang for allowing us to participate in his care.
[2017-08-15] MEDS: Sodium Chloride 0.9% 1,000 ML IV SCH ×4 (01:44→21:55)
[2017-08-15] MEDS: Meropenem IV 1 gm in NS 50 ML IVPB SCH ×3 (05:51→21:36)
[2017-08-15 06:27] LABS: BASO # 0.02 K/mm3 (0.0-2.0); BASO % 0.4 % (0.0-3.0); EOS # 0.2 (0.0-0.7); EOS % 3.2 % (1.5-5.0); GRAN # 4.25 (1.4-6.5); GRAN % 76.4 % (50.0-68.0); HEMOGLOBIN 8.8 g/dL (14.0-18.0); LYMPH # 0.6 (1.2-3.4); LYMPH % 11.5 % (22.0-35.0); MEAN CELL VOLUME 87.1 fl (80.0-105.0); MEAN CORPUSCULAR HEMOGLOBIN 26.4 pg (25.0-35.0); MEAN CORPUSCULAR HGB CONC 30.3 g/dl (31.0-37.0); MEAN PLATELET VOLUME 10.7 fl (7.0-11.0); MONO # 0.5 (0.1-0.6); MONO % 8.5 % (1.0-6.0); RBC 3.33 10^6/uL (3.5-6.1); RED CELL DISTRIBUTION WIDTH 22.6 % (11.5-14.5); WHITE BLOOD COUNT 5.6 10^3/ul (4.5-11.0)
[2017-08-15 08:21] LABS: ALBUMIN 2.8 g/dL (3.0-4.8); ALT/SGPT 21 U/L (7-56); AST/SGOT 14 U/L (17-59); BLOOD UREA NITROGEN 12 mg/dL (7-21); CALCIUM 8.7 mg/dL (8.4-10.5); GFR AFRICAN-AMERICAN > 60; GFR NON-AFRICAN AMERICAN > 60
[2017-08-15] MEDS: Insulin Reg-LOW-Coverage SC SCH ×3 (08:54→21:54)
[2017-08-15] MEDS: guaiFENesin-Codeine 100-10mg/5ml Syrup (5 ml) UD PO SCH ×2 (10:07→18:08)
[2017-08-15] MEDS: Vancomycin 1gm in NS 250ml 1 GM/250 ML BAG IVPB SCH ×2 (10:08→22:59)
--- NOTE | 2017-08-15 12:23 | CP.PCM.PN ---
Subjective - Date & Time of Evaluation Date of Evaluation: 08/15/17 Time of Evaluation: 12:19 - Subjective Subjective: Medicine progress note for Dr. Kathleen Arevalo PGY3 Patient seen and examined at [facility] this morning. No acute overnight events or new complaints reported. Denies chest pain, palpitations, SOB. Objective - Vital Signs/Intake and Output Vital Signs (last 24 hours): Temp Pulse Resp BP Pulse Ox 98.2 F 96 H 18 130/62 95 08/15/17 06:00 08/15/17 06:00 08/15/17 06:00 08/15/17 06:00 08/15/17 06:00 Intake and Output: 08/15/17 08/15/17 06:59 18:59 Intake Total 1320 Balance 1320 - Medications Medications: Current Medications Acetaminophen (Tylenol 325mg Tab) 650 mg PO BID [facility] Last Admin: 08/15/17 10:08 Dose: 650 mg Acetaminophen (Tylenol 325mg Tab) 650 mg PO Q6H PRN PRN Reason: Pain, Mild (1-3) Acetaminophen (Tylenol 325mg Tab) 650 mg PO Q6H PRN PRN Reason: Fever >100.4 F Aspirin (Ecotrin) 81 mg PO DAILY [facility] Last Admin: 08/15/17 10:08 Dose: 81 mg Digoxin (Digoxin) 0.125 mg PO QPM [facility] Last Admin: 08/14/17 17:41 Dose: 0.125 mg Duloxetine HCl (Cymbalta) 60 mg PO DAILY [facility] Guaifenesin/Codeine Phosphate (Robitussin W/Codeine) 5 ml PO BID [facility] Last Admin: 08/15/17 10:07 Dose: 5 ml Sodium Chloride (Sodium Chloride 0.9%) 1,000 mls @ 125 mls/hr IV .Q8H [facility] Last Admin: 08/15/17 08:09 Dose: 125 mls/hr Meropenem (Merrem Iv 1 Gm Premix) 50 mls @ 100 mls/hr IVPB Q8 [facility] PRN Reason: Protocol Stop: 08/23/17 06:01 Last Admin: 08/15/17 05:51 Dose: 100 mls/hr Vancomycin HCl (Vancomycin 1gm) 1 gm in 250 mls @ 167 mls/hr IVPB Q12H [facility] PRN Reason: Protocol Stop: 08/23/17 11:01 Last Admin: 08/15/17 10:08 Dose: 167 mls/hr Insulin Human Regular (Humulin R Low) 0 units SC ACHS [facility] PRN Reason: Protocol Last Admin: 08/15/17 08:54 Dose: 1 unit Metformin HCl (Glucophage) 1,000 mg PO BID [facility] Last Admin: 08/15/17 10:08 Dose: 1,000 mg Phenazopyridine HCl (Pyridium) 200 mg PO TID [facility] Last Admin: 08/15/17 10:08 Dose: 200 mg Quetiapine Fumarate (Seroquel) 25 mg PO HS [facility] PRN Reason: Protocol Last Admin: 08/14/17 21:04 Dose: 25 mg Tamsulosin HCl (Flomax) 0.4 mg PO DAILY [facility] Last Admin: 08/15/17 10:08 Dose: 0.4 mg - Labs Labs: 08/15/17 05:40 08/15/17 07:50 - Constitutional Appears: No Acute Distress - Head Exam Head Exam: ATRAUMATIC, NORMOCEPHALIC - Eye Exam Eye Exam: EOMI Pupil Exam: PERRL - ENT Exam ENT Exam: Mucous Membranes Moist - Respiratory Exam Respiratory Exam: Decreased Breath Sounds. absent: Rales, Rhonchi, Wheezes - Cardiovascular Exam Cardiovascular Exam: +S1, +S2. absent: Gallop, Rubs - GI/Abdominal Exam GI & Abdominal Exam: Soft. absent: Distended, Firm, Guarding, Rigid, Tenderness , Rebound Additional comments: large right-sided abdominal mass umbilical hernia soft, non-tender non-distended - Neurological Exam Neurological Exam: Alert, Awake, Oriented x3 - Psychiatric Exam Psychiatric exam: Normal Affect, Normal Mood - Skin Skin Exam: Dry, Intact, Normal Color, Warm Assessment and Plan - Assessment and Plan (Free Text) Plan: 82yo male with history of lymphoma, atrial fibrillation, depression that presents with c/o productive cough, dysuria and abdominal mass 1. Healthcare associated pneumonia 2. Gram negative hailey UTI 3. Hx of low grade non-hodgkins lymphoma 4. Hx of depression 5. Hx of atrial fibrillation -Patient has been afebrile with no leukocytosis -Blood culture has been negative over last 24hours and urine culture is growing gram negative rods; Procalcitonin negative -He is on meropenem and vancomycin per ID recommendations (Dr. Eason) for treatment of pneumonia/UTI -He is on flomax for BPH, seroquel for depression and digoxin for his history of atrial fibrillation -Consistent carb diet -Oncology consulted for evaluation/treatment of his lymphoma; He was previously diagnosed with low-grade non-hodgkins lymphoma and received treatment previously however stopped following up with oncology -CT and CXR reviewed; revealed IGNACIO mass, inflammatory changes, postobstructive pneumonitis and possible infiltrates in right lobe as well as bladder wall thickening suspicious for cystitis; see full reports Patient seen and case discussed/reviewed with attending, Dr. Wang
--- NOTE | 2017-08-15 17:34 | PN ---
DATE: 08/15/2017 FOLLOWUP NOTE SUBJECTIVE: He is comfortable in bed, in no acute distress. He is not ambulating. He has Gram-negative UTI and infiltrates bilaterally in the lungs, currently on IV antibiotics with meropenem and vancomycin. Urine growing Gram-negative rods. Denies any pain. REVIEW OF SYSTEMS: As per HPI. Rest of [id number] of systems reviewed negative. PHYSICAL EXAMINATION: GENERAL: Comfortable in bed, in no acute distress. VITAL SIGNS: Temperature 98.7, heart rate 86 per minute, blood pressure 130/80, pulse ox is 95% on room air. HEENT: Pallor positive. NECK: No lymphadenopathy. CHEST: Air entry present, equal and bilateral. No added sound. CARDIOVASCULAR: S1 and S2 normal. No murmur. No gallop. ABDOMEN: Soft and nontender. No hepatosplenomegaly. EXTREMITIES: 1+ edema. ATTORNEY [employer]: Alert and oriented x3. No focal sensory or motor deficit. LABORATORY DATA: White count 5.6, hemoglobin 8.8, hematocrit 29, and platelets 203. Sodium 140, potassium 4.3. BUN 12, creatinine 0.8. Glucose 176. MEDICATIONS: Reviewed. ASSESSMENT: 1. Non-Hodgkin lymphoma, low grade. 2. Bilateral lung infiltrate, left lower lobe and right upper lobe; questionable pneumonia, questionable malignancy. 3. History of depression. 4. History of atrial fibrillation. PLAN: He is currently on IV antibiotics. I discussed with Dr. Blackmon who also had a lengthy discussion with his brother, Mr. Dave Scales. My examination is to complete the course of IV/oral antibiotics for possible pneumonia. We will repeat the CAT scan of the chest in 3 to 4 weeks. Depending on the imaging study, he might need lung biopsy to establish the diagnosis of lung infiltrates/marked lesions. Lymphoma in the abdomen, lymph node decreased in size, might be related to few cycles of Rituxan he had in 2016. History of depression, currently on medication as per primary team. ID following. Discussed with Dr. Blackmon and team. Thank you Dr. Blackmon for allowing us to participate in Mr. Scales's care. Brianda Tomlin MD [facility] # [id number]
[2017-08-15] MEDS: Digoxin 125 mcg (0.125 mg) Tab PO SCH (18:08)
[2017-08-15 18:15] VITALS: PULSE 68
--- NOTE | 2017-08-15 21:10 | PN ---
DATE: 08/15/2017 SUBJECTIVE: The patient is in bed, in no acute distress, nontoxic. PHYSICAL EXAMINATION: VITAL SIGNS: Temperature is 98, blood pressure is 129/60, respiratory rate of 20, heart rate of 60. HEENT: Unremarkable. NECK: Supple. LUNGS: Have decreased breath sounds. HEART: Normal S1, S2. ABDOMEN: Soft, nontender. LABORATORY EXAMINATION: Reveals a white count of 5.6, hemoglobin of 8, platelets of 203. Chemistries are noted. The patient's BUN is 12, creatinine of 0.6. Procalcitonin is less than 0.05. Urinalysis is noted. 5 to 10 wbc's. Microbiology reveals the gram-negative hailey in the urine. Blood cultures are negative. Review of orders reveals the patient to be on meropenem and vancomycin. ASSESSMENT AND PLAN: An 82[facility] with dementia, depression, gastroesophageal reflux disease, thrombocytopenia, diabetes, Alzheimer's, atrial fibrillation, lymphoma, benign prostatic hypertrophy presenting with cough, congestion, healthcare-associated pneumonia and negative procalcitonin makes bacterial pneumonia less likely. Thus far, the blood cultures are negative. On vancomycin, meropenem, we will check on final culture results and we will make further recommendations. Awaiting for identification of gram-negative rods. Sarbjit Eason MD
[2017-08-16] MEDS: Meropenem IV 1 gm in NS 50 ML IVPB SCH (05:34)
[2017-08-16 06:59] LABS: BASO # 0.03 K/mm3 (0.0-2.0); BASO % 0.6 % (0.0-3.0); EOS # 0.2 (0.0-0.7); EOS % 4.7 % (1.5-5.0); GRAN # 3.39 (1.4-6.5); GRAN % 72.5 % (50.0-68.0); HEMOGLOBIN 8.5 g/dL (14.0-18.0); LYMPH # 0.7 (1.2-3.4); LYMPH % 14.7 % (22.0-35.0); MEAN CELL VOLUME 88.2 fl (80.0-105.0); MEAN CORPUSCULAR HEMOGLOBIN 26.5 pg (25.0-35.0); MEAN PLATELET VOLUME 10.5 fl (7.0-11.0); MONO # 0.4 (0.1-0.6); MONO % 7.5 % (1.0-6.0); RBC 3.21 10^6/uL (3.5-6.1); RED CELL DISTRIBUTION WIDTH 22.2 % (11.5-14.5); WHITE BLOOD COUNT 4.7 10^3/ul (4.5-11.0)
[2017-08-16] MEDS: Sodium Chloride 0.9% 1,000 ML IV SCH (07:01)
[2017-08-16 07:20] LABS: ALT/SGPT 16 U/L (7-56); AST/SGOT 36 U/L (17-59); BLOOD UREA NITROGEN 10 mg/dL (7-21); CALCIUM 8.7 mg/dL (8.4-10.5); GFR AFRICAN-AMERICAN > 60; GFR NON-AFRICAN AMERICAN > 60
[2017-08-16 07:48] VITALS: BP 153/84; PULSE 87; RESP 20; TEMP 97.8; O2SAT 94
[2017-08-16] MEDS: Insulin Reg-LOW-Coverage SC SCH ×2 (08:53→11:48)
[2017-08-16] MEDS: guaiFENesin-Codeine 100-10mg/5ml Syrup (5 ml) UD PO SCH (09:36)
--- NOTE | 2017-08-16 10:11 | CP.PCM.DIS ---
<Blayne Arevalo - Last Filed: 08/16/17 16:20> Provider - Provider Date of Admission: 08/13/17 18:29 Attending physician: Melvin Wang MD Consults: ID - Dr. Eason Oncology - Dr. Tomlin Time Spent in preparation of Discharge (in minutes): 35 Hospital Course - Lab Results Lab Results: Micro Results 08/13/17 20:14 Urine Urine Culture - Final Escherichia Coli Most Recent Lab Values WBC 4.7 10^3/ul (4.5-11.0) 08/16/17 06:30 RBC 3.21 10^6/uL (3.5-6.1) L 08/16/17 06:30 Hgb 8.5 g/dL (14.0-18.0) L 08/16/17 06:30 Hct 28.3 % (42.0-52.0) L 08/16/17 06:30 MCV 88.2 fl (80.0-105.0) 08/16/17 06:30 MCH 26.5 pg (25.0-35.0) 08/16/17 06:30 MCHC 30.0 g/dl (31.0-37.0) L 08/16/17 06:30 RDW 22.2 % (11.5-14.5) H 08/16/17 06:30 Plt Count 190 10^3/uL (120.0-450.0) 08/16/17 06:30 MPV 10.5 fl (7.0-11.0) 08/16/17 06:30 Gran % 72.5 % (50.0-68.0) H 08/16/17 06:30 Lymph % (Auto) 14.7 % (22.0-35.0) L 08/16/17 06:30 Guthrie % (Auto) 7.5 % (1.0-6.0) H 08/16/17 06:30 Eos % (Auto) 4.7 % (1.5-5.0) 08/16/17 06:30 Baso % (Auto) 0.6 % (0.0-3.0) 08/16/17 06:30 Gran # 3.39 (1.4-6.5) 08/16/17 06:30 Lymph # (Auto) 0.7 (1.2-3.4) L 08/16/17 06:30 Guthrie # (Auto) 0.4 (0.1-0.6) 08/16/17 06:30 Eos # (Auto) 0.2 (0.0-0.7) 08/16/17 06:30 Baso # (Auto) 0.03 K/mm3 (0.0-2.0) 08/16/17 06:30 pO2 42 mm/Hg (30-55) 08/13/17 17:54 VBG pH 7.32 (7.32-7.43) 08/13/17 17:54 VBG pCO2 54.0 (40-60) 08/13/17 17:54 VBG HCO3 27.8 mmol/l (21-28) 08/13/17 17:54 VBG Total CO2 29.5 mmol.L (22-28) H 08/13/17 17:54 VBG O2 Sat (Calc) 77.6 % (40-65) H 08/13/17 17:54 VBG Base Excess 0.7 mmol/L (0.0-2.0) 08/13/17 17:54 VBG Potassium 4.7 mmol/L (3.6-5.2) 08/13/17 17:54 Sodium 134.0 mmol/L (132-148) 08/13/17 17:54 Chloride 103.0 mmol/L (98-107) 08/13/17 17:54 Glucose 121 mg/dl (75-110) H 08/13/17 17:54 Lactate 1.3 mmol/L (0.7-2.1) 08/13/17 17:54 FiO2 21.0 % 08/13/17 17:54 Sodium 142 mmol/L (132-148) 08/16/17 06:30 Potassium 4.4 mmol/L (3.6-5.0) 08/16/17 06:30 Chloride 109 mmol/L (98-107) H 08/16/17 06:30 Carbon Dioxide 27 mmol/L (21-33) 08/16/17 06:30 Anion Gap 11 (10-20) 08/16/17 06:30 BUN 10 mg/dL (7-21) 08/16/17 06:30 Creatinine 0.5 mg/dl (0.8-1.5) L 08/16/17 06:30 Est GFR ( Amer) > 60 08/16/17 06:30 Est GFR (Non-Af Amer) > 60 08/16/17 06:30 POC Glucose (mg/dL) 158 mg/dL (65-110) H 08/16/17 06:37 Random Glucose 154 mg/dL (70-110) H 08/16/17 06:30 Calcium 8.7 mg/dL (8.4-10.5) 08/16/17 06:30 Magnesium 2.0 mg/dL (1.7-2.2) 08/13/17 14:00 Total Bilirubin 0.4 mg/dL (0.2-1.3) 08/16/17 06:30 AST 36 U/L (17-59) 08/16/17 06:30 ALT 16 U/L (7-56) 08/16/17 06:30 Alkaline Phosphatase 65 U/L (38-126) 08/16/17 06:30 Lactate Dehydrogenase 309 U/L (333-699) L 08/13/17 14:00 Total Creatine Kinase < 20 U/L (35-230) L 08/13/17 14:00 Troponin I < 0.01 ng/mL D 08/13/17 14:00 Total Protein 6.0 g/dL (5.8-8.3) 08/16/17 06:30 Albumin 3.0 g/dL (3.0-4.8) 08/16/17 06:30 Globulin 3.0 gm/dL 08/16/17 06:30 Albumin/Globulin Ratio 1.0 (1.1-1.8) L 08/16/17 06:30 Lipase 91 U/L (23-300) 08/13/17 14:00 Procalcitonin < 0.05 NG/ML (0.19-0.49) L 08/14/17 12:00 Venous Blood Potassium 4.7 mmol/L (3.6-5.2) 08/13/17 17:54 Urine Color Yellow (YELLOW) 08/13/17 20:14 Urine Appearance Sl cloudy (CLEAR) 08/13/17 20:14 Urine pH 6.0 (4.7-8.0) 08/13/17 20:14 Ur Specific [place] <= 1.005 (1.005-1.035) 08/13/17 20:14 Urine Protein Trace mg/dL (<30 mg/dL) H 08/13/17 20:14 Urine Glucose (UA) Negative mg/dL (NEGATIVE) 08/13/17 20:14 Urine Ketones Negative mg/dL (NEGATIVE) 08/13/17 20:14 Urine Blood Moderate (NEGATIVE) H 08/13/17 20:14 Urine Nitrate Positive (NEGATIVE) H 08/13/17 20:14 Urine Bilirubin Negative (NEGATIVE) 08/13/17 20:14 Urine Urobilinogen 0.2 E.U./dL (<1 E.U./dL) 08/13/17 20:14 Ur Leukocyte Esterase Moderate Iva/uL (NEGATIVE) H 08/13/17 20:14 Urine RBC 20 - 25 /hpf (0-2) 08/13/17 20:14 Urine WBC 5 - 10 /hpf (0-6) 08/13/17 20:14 Ur Epithelial Cells Many /hpf (0-5) 08/13/17 20:14 Amorphous Sediment Moderate 08/13/17 20:14 Urine Bacteria Trace (NEG) 08/13/17 20:14 - Hospital Course Hospital Course: 82yo male with history of dementia, depression, atrial fibrillation, GERD, thrombocytopenia, low grade non-hodgkins lymphoma presented to [facility] with multiple complaints including dysuria, progressing/worsening cough and abdominal mass secondary to his lymphoma. He reported that both his dysuria and cough have been progressing over the past several months. He states that his cough has been producing green sputum. He also reported that his abdominal mass has been causing discomfort however he has admittedly not followed up with oncology for treatment of his lymphoma. On evaluation, a CT chest/abdomen/ pelvis revealed IGNACIO mass, inflammatory changes, postobstructive pneumonitis and possible infiltrates in right lobe as well as bladder wall thickening suspicious for cystitis. He was started on meropenem and vancomycin per ID recommendations for treatment of pneumonia/UTI. His blood cultures were negative and his urine culture grew Ecoli. Oncology was consulted for evaluation /treatment of his lymphoma and reportedly patient had stopped following up for treatment. He was instructed to schedule an appointment as an outpatient with his oncologist, Dr. Tomlin to resume evaluation/treatment of his lymphoma. He reported improvement of his symptoms and was subsequently discharged to his skilled nursing with instructions to complete 2 more days of antibiotics (meropenem ). Discharge Exam - Head Exam Head Exam: ATRAUMATIC, NORMOCEPHALIC - Eye Exam Eye Exam: EOMI - Respiratory Exam Respiratory Exam: Decreased Breath Sounds. absent: Rales, Rhonchi, Wheezes - Cardiovascular Exam Cardiovascular Exam: +S1, +S2. absent: Gallop, JVD, Rubs - GI/Abdominal Exam GI & Abdominal Exam: Hernia, Mass, Soft. absent: Distended, Firm, Guarding, Rebound Additional comments: large right-sided abdominal mass - Neurological Exam Neurological exam: Alert, CN II-XII Intact, Oriented x3 - Psychiatric Exam Psychiatric exam: Normal Affect, Normal Mood - Skin Skin Exam: Dry, Intact, Normal Color, Warm Discharge Plan - Discharge Medications Prescriptions: Meropenem IV 1 gm in NS [Merrem IV 1 gm Premix] 1 gm IVPB Q8H 2 Days #6 bag - Follow Up Plan Condition: STABLE Disposition: HOME/ ROUTINE Instructions: Urinary Tract Infections in Adults, Heart Healthy Diet, Lymphoma , Pneumonia, Adult (DC), Diabetes Type 1, Adult (DC), Sepsis, Adult (DC), Preventing Falls Additional Instructions: 1. Follow up with your primary doctor within 1 week of discharge. 2. Continue to take your medications as prescribed. 3. Complete another 2 days of antibiotics with Meropenem 1g q8h. 4. Return to the emergency room should you have a worsening of your symptoms. <Melvin Wang - Last Filed: 08/17/17 12:18> Provider - Provider Date of Admission: 08/13/17 18:29 Attending physician: Melvin Wang MD Hospital Course - Lab Results Lab Results: Micro Results 08/13/17 20:14 Urine Urine Culture - Final Escherichia Coli Most Recent Lab Values WBC 4.7 10^3/ul (4.5-11.0) 08/16/17 06:30 RBC 3.21 10^6/uL (3.5-6.1) L 08/16/17 06:30 Hgb 8.5 g/dL (14.0-18.0) L 08/16/17 06:30 Hct 28.3 % (42.0-52.0) L 08/16/17 06:30 MCV 88.2 fl (80.0-105.0) 08/16/17 06:30 MCH 26.5 pg (25.0-35.0) 08/16/17 06:30 MCHC 30.0 g/dl (31.0-37.0) L 08/16/17 06:30 RDW 22.2 % (11.5-14.5) H 08/16/17 06:30 Plt Count 190 10^3/uL (120.0-450.0) 08/16/17 06:30 MPV 10.5 fl (7.0-11.0) 08/16/17 06:30 Gran % 72.5 % (50.0-68.0) H 08/16/17 06:30 Lymph % (Auto) 14.7 % (22.0-35.0) L 08/16/17 06:30 Guthrie % (Auto) 7.5 % (1.0-6.0) H 08/16/17 06:30 Eos % (Auto) 4.7 % (1.5-5.0) 08/16/17 06:30 Baso % (Auto) 0.6 % (0.0-3.0) 08/16/17 06:30 Gran # 3.39 (1.4-6.5) 08/16/17 06:30 Lymph # (Auto) 0.7 (1.2-3.4) L 08/16/17 06:30 Guthrie # (Auto) 0.4 (0.1-0.6) 08/16/17 06:30 Eos # (Auto) 0.2 (0.0-0.7) 08/16/17 06:30 Baso # (Auto) 0.03 K/mm3 (0.0-2.0) 08/16/17 06:30 pO2 42 mm/Hg (30-55) 08/13/17 17:54 VBG pH 7.32 (7.32-7.43) 08/13/17 17:54 VBG pCO2 54.0 (40-60) 08/13/17 17:54 VBG HCO3 27.8 mmol/l (21-28) 08/13/17 17:54 VBG Total CO2 29.5 mmol.L (22-28) H 08/13/17 17:54 VBG O2 Sat (Calc) 77.6 % (40-65) H 08/13/17 17:54 VBG Base Excess 0.7 mmol/L (0.0-2.0) 08/13/17 17:54 VBG Potassium 4.7 mmol/L (3.6-5.2) 08/13/17 17:54 Sodium 134.0 mmol/L (132-148) 08/13/17 17:54 Chloride 103.0 mmol/L (98-107) 08/13/17 17:54 Glucose 121 mg/dl (75-110) H 08/13/17 17:54 Lactate 1.3 mmol/L (0.7-2.1) 08/13/17 17:54 FiO2 21.0 % 08/13/17 17:54 Sodium 142 mmol/L (132-148) 08/16/17 06:30 Potassium 4.4 mmol/L (3.6-5.0) 08/16/17 06:30 Chloride 109 mmol/L (98-107) H 08/16/17 06:30 Carbon Dioxide 27 mmol/L (21-33) 08/16/17 06:30 Anion Gap 11 (10-20) 08/16/17 06:30 BUN 10 mg/dL (7-21) 08/16/17 06:30 Creatinine 0.5 mg/dl (0.8-1.5) L 08/16/17 06:30 Est GFR ( Amer) > 60 08/16/17 06:30 Est GFR (Non-Af Amer) > 60 08/16/17 06:30 POC Glucose (mg/dL) 208 mg/dL (65-110) H 08/16/17 11:18 Random Glucose 154 mg/dL (70-110) H 08/16/17 06:30 Calcium 8.7 mg/dL (8.4-10.5) 08/16/17 06:30 Magnesium 2.0 mg/dL (1.7-2.2) 08/13/17 14:00 Total Bilirubin 0.4 mg/dL (0.2-1.3) 08/16/17 06:30 AST 36 U/L (17-59) 08/16/17 06:30 ALT 16 U/L (7-56) 08/16/17 06:30 Alkaline Phosphatase 65 U/L (38-126) 08/16/17 06:30 Lactate Dehydrogenase 309 U/L (333-699) L 08/13/17 14:00 Total Creatine Kinase < 20 U/L (35-230) L 08/13/17 14:00 Troponin I < 0.01 ng/mL D 08/13/17 14:00 Total Protein 6.0 g/dL (5.8-8.3) 08/16/17 06:30 Albumin 3.0 g/dL (3.0-4.8) 08/16/17 06:30 Globulin 3.0 gm/dL 08/16/17 06:30 Albumin/Globulin Ratio 1.0 (1.1-1.8) L 08/16/17 06:30 Lipase 91 U/L (23-300) 08/13/17 14:00 Procalcitonin < 0.05 NG/ML (0.19-0.49) L 08/14/17 12:00 Venous Blood Potassium 4.7 mmol/L (3.6-5.2) 08/13/17 17:54 Urine Color Yellow (YELLOW) 08/13/17 20:14 Urine Appearance Sl cloudy (CLEAR) 08/13/17 20:14 Urine pH 6.0 (4.7-8.0) 08/13/17 20:14 Ur Specific [place] <= 1.005 (1.005-1.035) 08/13/17 20:14 Urine Protein Trace mg/dL (<30 mg/dL) H 08/13/17 20:14 Urine Glucose (UA) Negative mg/dL (NEGATIVE) 08/13/17 20:14 Urine Ketones Negative mg/dL (NEGATIVE) 08/13/17 20:14 Urine Blood Moderate (NEGATIVE) H 08/13/17 20:14 Urine Nitrate Positive (NEGATIVE) H 08/13/17 20:14 Urine Bilirubin Negative (NEGATIVE) 08/13/17 20:14 Urine Urobilinogen 0.2 E.U./dL (<1 E.U./dL) 08/13/17 20:14 Ur Leukocyte Esterase Moderate Iva/uL (NEGATIVE) H 08/13/17 20:14 Urine RBC 20 - 25 /hpf (0-2) 08/13/17 20:14 Urine WBC 5 - 10 /hpf (0-6) 08/13/17 20:14 Ur Epithelial Cells Many /hpf (0-5) 08/13/17 20:14 Amorphous Sediment Moderate 08/13/17 20:14 Urine Bacteria Trace (NEG) 08/13/17 20:14 - Hospital Course Hospital Course: Pt seen and examined yesterday. This is a late entry from yesterday. I have reviewed the note of the manager of medical and agree with it. I have discussed the assessment and plan with the resident. I have reviewed the patient's labs and medications. Pt was discharged to finish with 2 more days of Abx. He is going to f/u with Dr Tomlin. She spoke with her brother. He is eating ok and has no pain.
--- NOTE | 2017-08-17 03:44 | PN ---
DATE: 08/16/2017 SUBJECTIVE: The patient is seen earlier today in 562, bed 1. PHYSICAL EXAMINATION: VITAL SIGNS: Temperature is 98, blood pressure is 150/80, respiratory rate of 20, heart rate of 87. HEENT: Unremarkable. NECK: Supple. LUNGS: Have decreased breath sounds. HEART: Normal S1 and S2. ABDOMEN: Soft, nontender. LABORATORY DATA: Reveals a white count of 4.7, hemoglobin of 8, platelets of 190. Chemistries are noted. Urinalysis is noted. Microbiology reveals E. coli in the urine. Blood cultures are negative. Sensitivity is noted. ASSESSMENT AND PLAN: This is an 82-year-old male from the senior care with dementia, depression, gastroesophageal reflux disease, thrombocytopenia, diabetes, Alzheimer's, atrial fibrillation, lymphoma, benign prostatic hypertrophy, presenting with cough, congestion, healthcare-associated pneumonia and negative procalcitonin . Escherichia coli in the urine. . Sarbjit Eason MD
== END 2017-08-16 14:38 | DRG 689 ==
LOC: ED 13:02 → ERH 18:29 → 5RNO 20:52
PROVIDERS: ADMIT Internal Medicine Nephrology; ATTEND Internal Medicine Nephrology
DX: N39.0 Urinary tract infection, site not specified (principal); B96.20 Unspecified Escherichia coli [E. coli] as the cause of diseases classified elsewhere; J18.9 Pneumonia, unspecified organism; C85.93 Non-Hodgkin lymphoma, unspecified, intra-abdominal lymph nodes; N40.0 Benign prostatic hyperplasia without lower urinary tract symptoms; I48.91 Unspecified atrial fibrillation; I10 Essential (primary) hypertension; E11.9 Type 2 diabetes mellitus without complications; K21.9 Gastro-esophageal reflux disease without esophagitis; D69.6 Thrombocytopenia, unspecified; F02.80 Dementia in other diseases classified elsewhere, unspecified severity, without behavioral disturbance, psychotic disturbance, mood disturbance, and anxiety; G30.9 Alzheimer's disease, unspecified; F32.9 Major depressive disorder, single episode, unspecified; Y95 Nosocomial condition; Z99.3 Dependence on wheelchair; Z87.891 Personal history of nicotine dependence; Z88.0 Allergy status to penicillin